=== PATIENT | male | born 1995 ===

== ENCOUNTER 2022-03-04 03:12 | Emergency (ER) ==
[~2022-03-04] VITALS: Ht 167.6 cm; Wt 85.8 kg
[2022-03-04] MEDS ORDERED: ACETAMINOPHEN TAB 650MG DOSE (2X325MG) PO ONE (03:25)
[2022-03-04] MEDS ORDERED: IBUPROFEN 800 MG TAB PO ONE (03:25)
== END 2022-03-04 04:45 | disposition left against medical advice (07) ==
LOC: M ED 03:12
DX: Z53.21 Procedure and treatment not carried out due to patient leaving prior to being seen by health care provider (principal)